=== PATIENT | male | born 1945 | race Caucasian/White ===

== ENCOUNTER 2025-01-20 09:05 | Outpatient (CLI) | payer MEDICARE, OTHER ==
--- NOTE | 2025-01-20 13:02 | RADIOLOGY REPORT ---
PROCEDURE: MR MRI ORBITS FACE AND NECK Indication: DYSPHAGIA, history of tongue can not COMPARISON: None TECHNIQUE: Multiplanar multisequence images of the face/ neck were obtained with and without contrast. FINDINGS: Examination degraded by motion. There is also susceptibility artifact from dental hardware which obscures evaluation There is a T2 bright enhancing mass along the the left lateral aspect of the tongue measuring 2.4 x 1.5 cm. Please refer to coronal image 20 of 34 and axial image 12 of 38 on the postcontrast sequences Submandibular glands unremarkable. Parotid, director outcomes spaces preserved. No significant cervical jugulodigastric jugulodigastric lymphadenopathy. No significant posterior cervical triangle lymphadenopathy. Nasopharynx, oropharynx, hypopharynx patent. Epiglottis unremarkable. Right thyroid nodule measuring 1.5 cm. Left maxillary sinus mucosal retentionm cyst/ polyp measuring 1.6 cm IMPRESSION: Examination degraded by motion and susceptibility artifact. Within limitations: Enhancing mass along the left lateral aspect of the tongue measuring 2.5 x 1.5 cm. Recommend ENT consultation for further evaluation. 1.5 cm right thyroid nodule.
[2025-01-20] MEDS ORDERED: GADOTERATE MEGLUMINE 7.5 MMOL/15 ML VIAL IV ONE (16:09)
== END 2025-01-20 23:59 | disposition home or self-care (01) ==
LOC: MRI 09:05
PROVIDERS: ATTEND Family Medicine
DX: J32.0 Chronic maxillary sinusitis (principal); R13.10 Dysphagia, unspecified; J33.8 Other polyp of sinus
CPT/HCPCS: 70543; A9575